=== PATIENT | female | born 1970 | race Caucasian/White ===

== ENCOUNTER → 2016-09-23 | Day surgery (SDC) | payer OTHER ==
[~2016-09-23] VITALS: Ht 167.6 cm; Wt 59.9 kg
--- NOTE | 2016-09-23 14:23 | Operative Report ---
Operative/Inv Procedure Report Surgery Date: 09/23/16 Name of Procedure: Exam under anesthesia, Hysteroscopy. Cervical dilation, myosure resection of endometrial polyp, uterine curettage Pre-Operative Diagnosis: Abnormal uterine bleeding with evidence of likely endometrial polyp on saline infused sonogram Post-Operative Diagnosis: Endometrial polyp Estimated Blood Loss: LESS THAN 15 Ml Surgeon/Cooker Meal: JERI DAVIDSON,KHLOE Allison Anesthesia: local monitored anesthesi Monitors: BP cuff, EKG electrodes, pulse oximeter IV Fluids: 750 crystalloid Implants: None Urine Output: No catheterization, not measured Drains: None Specimens: 1 endocervical curettage #2 endometrial curettage was polyp Microbiology: None Tourniquet: None Complications: None Condition: Good Operative Indication: 45-year-old woman with increasing menorrhagia. Office evaluation included saline infused sonography that revealed endometrial polyp. Patient was advised for hysteroscopy D&C and removal of endometrial polyp. Myosure set up was arranged preoperatively Operative/Procedure Note Note: Patient was brought to the OR and placed on the OR table in a dorsal supine position. Timeout was discussed by the team and agreed upon. Patient was given IV sedation. After evidence of good IV sedation she was placed in the dorsal lithotomy position with pneumatic compression boots on her lower extremities utilizing candycane stirrups. Exam under anesthesia showed a normal-size uterus , adnexa nonpalpable. Speculum placed vagina cervix visualized. Anterior cervical lip was grasped with single-tooth tenaculum. Endocervical curettage performed. Specimens of ECC separately submitted. Cervix and then carefully dilated to a #6 Hegar dilator. The hysteroscope was introduced to the endocervical canal with direct visualization into the endometrial cavity. The hydrodistention system was then set up to match to her mean arterial pressure. The endocervical canal appeared somewhat elongated. Upon visualization of the uterine cavity, a significant fundal septum was noted. 1 cm polyp noted on the anterior uterine wall near the left cornu. At this point the myosure resection catheter was placed through the hysteroscope operating channel under direct visualization. The resection catheter was brought to the level of the polyp. The suction and morcellation option was then activated, quickly removing the anterior endometrial polyp easily and completely. The resection catheter was then used to get a textiles sales representative sample of the endometrium on the anterior posterior and lateral uterine gudino. This will be listed as uterine curettage. At the completion of the procedure there was excellent hemostasis. There was no significant fluid deficit. All instruments moved from that the uterus and under direct visualization. All instruments removed from the vagina. Good hemostasis continued. Sponge, Telfa, and instrument counts were correct 2. The 2 separate tissue specimens, consisting of #1 of ECC and #2 endometrial curettage and endometrial polyp were submitted to the lab. Patient was returned turned to the dorsal supine position awakened from anesthesia and taken recovery room good condition. Findings: elongated endocervical canal. Uterine cavity showed a significant fundal septum, and an anterior wall endometrial polyp which was completely removed Discharge Disposition: Same Day Admissions
== END ==
LOC: STS 01:52
DX: N84.0 Polyp of corpus uteri (principal); N71.1 Chronic inflammatory disease of uterus; N93.8 Other specified abnormal uterine and vaginal bleeding
CPT/HCPCS: 81025; 88305; J0131; J2250; J2405